=== PATIENT | female | born 1990 | race Caucasian/White ===

== ENCOUNTER 2019-03-23 17:25 | Emergency (ER) | payer OTHER ==
[~2019-03-23] VITALS: Ht 165.1 cm; Wt 77.1 kg
[2019-03-23 17:44] VITALS: BP 120/56
[2019-03-23] MEDS ORDERED: IRON325 PO (17:47)
[2019-03-23] MEDS ORDERED: PRENATAL MULTI1 EAC4 PO (17:48)
== END 2019-03-23 17:57 | disposition left against medical advice (07) ==
LOC: M.ERS 17:25
DX: O26.893 Other specified pregnancy related conditions, third trimester (principal); R10.30 Lower abdominal pain, unspecified; Z3A.36 36 weeks gestation of pregnancy